=== PATIENT | male | born 1990 | race Caucasian/White ===

== ENCOUNTER 2017-01-01 18:30 | Emergency (ER) | payer OTHER ==
[~2017-01-01] VITALS: Ht 175.3 cm; Wt 81.6 kg
[2017-01-01] MEDS ORDERED: ATIVAN0.5 MG PO (18:58)
== END 2017-01-01 18:56 | disposition short-term general hospital (02) ==
LOC: ER 18:30
DX: F41.9 Anxiety disorder, unspecified (principal); J45.909 Unspecified asthma, uncomplicated; Z79.899 Other long term (current) drug therapy
CPT/HCPCS: J2930

== ENCOUNTER 2017-02-12 08:13 | Emergency (ER) | payer OTHER ==
[~2017-02-12] VITALS: Ht 175.3 cm; Wt 83.9 kg
[~2017-02-12 08:13] MED LIST: ATIVAN0.5 MG PO
[2017-02-12] MEDS ORDERED: ADVAIR DIS14 PUFF/DI INH (08:25)
[2017-02-12] MEDS ORDERED: VENTOLIN HFA18 GM INH (08:47)
[2017-02-12] MEDS ORDERED: ADVAIR DIS14 PUFF/IN INH (08:47)
== END 2017-02-12 08:48 | disposition short-term general hospital (02) ==
LOC: ER 08:13
DX: J40 Bronchitis, not specified as acute or chronic (principal)